=== PATIENT | female | born 1990 | race Caucasian/White ===

== ENCOUNTER → 2017-10-25 | Emergency (ER) | payer OTHER ==
[~2017-10-25] VITALS: Ht 154.9 cm; Wt 54.0 kg
== END | disposition home or self-care (01) ==
LOC: ER 17:51
DX: I10 Essential (primary) hypertension (principal)

== ENCOUNTER → 2018-03-20 | Emergency (ER) | payer OTHER ==
[~2018-03-20] VITALS: Ht 154.9 cm; Wt 58.1 kg
[~2018-03-20] MED LIST: KETO10TA2 PO; ORPHENADRINE C100 MG PO; SYNTHROID100 MCG
== END | disposition home or self-care (01) ==
LOC: ER 20:19
DX: M54.6 Pain in thoracic spine (principal)

== ENCOUNTER 2021-06-30 12:23 | Emergency (ER) | payer OTHER ==
[~2021-06-30] VITALS: Ht 154.9 cm; Wt 54.4 kg
[2021-06-30] MEDS ORDERED: LABETALOL 11 MG/1 ML (12:53)
[2021-06-30] MEDS ORDERED: PRENA1 TRUE CO1 EACH (12:54)
== END 2021-06-30 17:02 | disposition home or self-care (01) ==
LOC: ER 12:23
DX: O02.0 Blighted ovum and nonhydatidiform mole (principal); Z3A.01 Less than 8 weeks gestation of pregnancy

== ENCOUNTER 2022-09-04 06:41 | Emergency (ER) | payer OTHER ==
[~2022-09-04] VITALS: Ht 154.9 cm; Wt 55.8 kg
[~2022-09-04 06:41] MED LIST changes: +LABETALOL 11 MG/1 ML; +PRENA1 TRUE CO1 EACH
== END 2022-09-04 13:00 ==
LOC: ER 06:41
DX: R07.81 Pleurodynia (principal); I10 Essential (primary) hypertension; E03.9 Hypothyroidism, unspecified; F41.9 Anxiety disorder, unspecified

== ENCOUNTER 2024-01-30 17:40 | Emergency (ER) | payer OTHER ==
[~2024-01-30] VITALS: Ht 154.9 cm; Wt 55.3 kg
[2024-01-30] MEDS ORDERED: FAMOTIDINE/PF 20 MG/2 ML VIAL IV PUSH STA (19:09)
[2024-01-30] MEDS ORDERED: ONDANSETRON HCL 2 MG/ML VIAL IV STA (19:10)
[2024-01-30] MEDS ORDERED: FAMOTIDINE/PF 20 MG/2 ML VIAL ONE (19:48)
[2024-01-30] MEDS ORDERED: ONDANSETRON HCL 2 MG/ML VIAL ONE (19:48)
[2024-01-30 20:47] LABS: HEMOGLOBIN 11.5 g/dL (12.0-15.00); MEAN CELL VOLUME 83.2 fL (80.00-100.00); MEAN CORPUSCULAR HEMOGLOBIN 28.2 pg (27.00-32.0); MEAN CORPUSCULAR HGB CONC 33.9 g/dl (32.0-36.0); PLATELET COUNT 222 K/uL (150-450); RED BLOOD COUNT 4.09 M/uL (4.00-6.00); RED CELL DISTRIBUTION WIDTH 14.2 % (11.5-14.5)
[2024-01-30 21:15] LABS: CALCIUM 8.8 mg/dL (8.5-10.1); CREATININE SERUM 0.86 mg/dL (0.55-1.02); GFR 75.09; POTASSIUM 3.82 mEq/L (3.5-5.1)
== END 2024-01-30 21:41 | disposition home or self-care (01) ==
LOC: ER 17:42
PROVIDERS: General Practice
DX: R53.81 Other malaise (principal)
CPT/HCPCS: 36415; 96365; 99282; J2405; J3490

== ENCOUNTER 2024-07-12 00:07 | Emergency (ER) | payer OTHER ==
[~2024-07-12] VITALS: Ht 154.9 cm; Wt 59.0 kg
[2024-07-12] MEDS ORDERED: VALACYCLOVIR500 MG PO (00:16)
[2024-07-12] MEDS ORDERED: KETOROLAC TROMETHAMINE 30 MG VIAL IV STA (01:09)
[2024-07-12] MEDS ORDERED: 0.9 % SODIUM CHLORIDE 1,000 ML IV ONE (01:15)
[2024-07-12] MEDS ORDERED: KETOROLAC TROMETHAMINE 30 MG VIAL ONE (01:51)
[2024-07-12 02:21] LABS: HEMATOCRIT 33.9 % (36.0-45.00); HEMOGLOBIN 11.4 g/dL (12.0-15.00); MEAN CELL VOLUME 78.4 fL (80.00-100.00); MEAN CORPUSCULAR HEMOGLOBIN 26.3 pg (27.00-32.0); MEAN CORPUSCULAR HGB CONC 33.6 g/dl (32.0-36.0); PLATELET COUNT 194 K/uL (150-450); RED BLOOD COUNT 4.32 M/uL (4.00-6.00); RED CELL DISTRIBUTION WIDTH 14.4 % (11.5-14.5)
[2024-07-12 02:29] LABS: INR 0.98; PARTIAL THROMBOPLASTIN TIME 27.7 SECONDS (22.0-34.0); PROTHROMBIN TIME 10.7 SECONDS (9.0-11.5)
[2024-07-12 02:36] LABS: ALBUMIN 3.9 gm/dL (3.4-5.0); ALKALINE PHOSPHATASE 73 U/L (50-136); ALT/SGPT 20 U/L (12-78); AMYLASE 100 U/L (25-115); ANION GAP 7 (10.0-20.0); AST/SGOT 13 U/L (15-37); BILIRUBIN,CONJUGATED < 0.10 mg/dL (0.0-0.2); BLOOD UREA NITROGEN 13 mg/dL (7-18); BUN CREA RATIO 15 (7.0-25.0); CALCIUM 8.9 mg/dL (8.5-10.1); CARBON DIOXIDE 30 mEq/L (21-32); CHLORIDE 107 mmol/L (98-107); CREATININE SERUM 0.89 mg/dL (0.55-1.02); GFR 71.76; GLOBULINA 3.8 G/DL (2.4-3.5); GLUCOSE FASTING 87 mg/dL (65-100); LIPASE 29 U/L (13-75); OSMOLALITY SERUM 279 MOSM/KG (275-295); POTASSIUM 3.99 mEq/L (3.5-5.1); SODIUM 140 mmol/L (136-145); TOTAL PROTEIN 7.7 gm/dL (6.4-8.2)
[2024-07-12 02:38] LABS: HCG QUANTITATIVE < 1 mUI/mL (1-3)
[2024-07-12 02:47] LABS: URINE APPEARANCE Cloudy; URINE BILIRRUBIN Negative (NEGATIVE); URINE BLOOD Small; URINE COLOR Yellow; URINE GLUCOSE Negative (NEGATIVE); URINE KETONE Negative (NEGATIVE); URINE LEUKOCYTE Small; URINE NITRATE Positive; URINE PROTEIN Negative (NEGATIVE); URINE UROBILINOGEN 0.2 E.U./dl
[2024-07-12 02:51] LABS: URINE BACTERIA > 9821.5 uL (0.0-1933); URINE EPITHELIAL CELLS 34.6 uL (0.0-38.8); URINE RBC 39.1 uL (0.0-20.8); URINE WBC 312.5 uL (0.0-23.2)
[2024-07-12] MEDS ORDERED: CEFTRIAXONE SODIUM 1,000 MG VIAL IV STA (04:14)
[2024-07-12] MEDS ORDERED: CEFTRIAXONE SODIUM 1,000 MG VIAL ONE (04:16)
[2024-07-12] MEDS ORDERED: KETO10TA2 PO (04:18)
[2024-07-12] MEDS ORDERED: CIPRO500 MG PO (04:18)
== END 2024-07-12 04:23 ==
LOC: ER 00:09
PROVIDERS: General Practice
DX: N39.0 Urinary tract infection, site not specified (principal)

== ENCOUNTER 2025-04-02 15:47 | Emergency (ER) | payer OTHER ==
[~2025-04-02] VITALS: Ht 154.9 cm; Wt 61.7 kg
[~2025-04-02 15:47] MED LIST changes: +CIPRO500 MG PO; +VALACYCLOVIR500 MG PO
[2025-04-02 16:52] VITALS: O2SAT 98
[2025-04-02] MEDS ORDERED: LABETALOL HCL 100 MG/20 ML ML IV STA (18:09)
[2025-04-02] MEDS ORDERED: LABETALOL HCL 100 MG/20 ML ML ONE (18:47)
[2025-04-02 18:54] LABS: BASO % 0.6 % (0.1-1.2); EOS # 0.09 (0.04-0.54); EOS % 1.4 % (0.7-7.0); LYMPH # 2.72 (1.18-3.74); LYMPH % 42.0 % (19.3-53.1); MEAN PLATELET VOLUME 10.90 fl (9.4-12.4); MONO # 0.55 (0.24-0.82); MONO % 8.5 % (4.7-12.5); NEUT # 3.06 (1.56-6.13); NEUT % 47.2 % (34.0-71.1); RED CELL DISTRIBUTION WIDTH 14.6 % (11.6-14.4)
[2025-04-02 19:20] LABS: INR 0.99
[2025-04-02 19:24] LABS: ALT/SGPT 22 U/L (12-78); AST/SGOT 16 U/L (15-37); BILIRUBIN TOTAL 0.25 mg/dL (0.3-1.2); BUN CREA RATIO 12 (7.0-25.0); CREATININE SERUM 0.94 mg/dL (0.55-1.02); GFR 67.00; GLOBULINA 4.0 G/DL (2.4-3.5); GLUCOSE FASTING 104 mg/dL (65-100); OSMOLALITY SERUM 283 MOSM/KG (275-295)
[2025-04-02 19:56] LABS: URINE APPEARANCE Clear; URINE BILIRRUBIN Negative (NEGATIVE); URINE BLOOD Small; URINE COLOR Yellow; URINE GLUCOSE Negative (NEGATIVE); URINE KETONE Negative (NEGATIVE); URINE LEUKOCYTE Negative; URINE NITRATE Negative; URINE PROTEIN Negative (NEGATIVE); URINE UROBILINOGEN 0.2 E.U./dl
[2025-04-02 20:00] LABS: URINE BACTERIA 413.8 uL (0.0-1933); URINE EPITHELIAL CELLS 31.8 uL (0.0-38.8); URINE RBC 24.3 uL (0.0-20.8); URINE WBC 18.1 uL (0.0-23.2)
[2025-04-02 20:02] LABS: URINE CAST 0.14 uL (0.0-1.40)
[2025-04-02] MEDS ORDERED: CLONIDINE HCL 0.1 MG TABLET PO STA (20:23)
[2025-04-02] MEDS ORDERED: CLONIDINE HCL 0.1 MG TABLET PO ONE (20:32)
[2025-04-02] MEDS ORDERED: COZAAR50 MG PO (22:36)
[2025-04-02 22:43] VITALS: BP 131/89
== END 2025-04-02 22:44 | disposition home or self-care (01) ==
LOC: ER 15:47
PROVIDERS: Physician Assistant Medical
DX: I16.9 Hypertensive crisis, unspecified (principal); I10 Essential (primary) hypertension